=== PATIENT | female | born 1985 | race Two or more races ===

== ENCOUNTER → 2019-08-15 | Outpatient (CLI) | payer OTHER | END | disposition home or self-care (01) | LOC: PRENATAL 10:00 → EDSEX 10:02 → PRENATAL 10:02 | DX: O35.3 Maternal care for (suspected) damage to fetus from viral disease in mother (principal) ==

== ENCOUNTER 2019-12-02 06:53 | Inpatient (IN) | payer OTHER ==
[~2019-12-02] VITALS: Ht 167.6 cm; Wt 3.6 kg
[2019-12-02] MEDS ORDERED: PRENATAL TABLE1 EAC1 PO (14:10)
== END 2019-12-05 17:51 | disposition home or self-care (01) | DRG 788 ==
LOC: OB/GYN 06:53 → LDR 06:53 → O/R 12-03 18:08 → OB/GYN 12-03 18:37
PROVIDERS: ADMIT Obstetrics & Gynecology; ATTEND Obstetrics & Gynecology
PROC: 3E0P7VZ Introduction of Hormone into Female Reproductive, Via Natural or Artificial Opening (ICD-10-PCS; 2019-12-02)
PROC: 3E033VJ Introduction of Other Hormone into Peripheral Vein, Percutaneous Approach (ICD-10-PCS; 2019-12-02)
PROC: 4A1HXCZ Monitoring of Products of Conception, Cardiac Rate, External Approach (ICD-10-PCS; 2019-12-02)
PROC: 10D00Z1 Extraction of Products of Conception, Low, Open Approach (ICD-10-PCS; principal; 2019-12-03 17:00)
DX: O61.0 Failed medical induction of labor (principal); Z3A.40 40 weeks gestation of pregnancy; Z37.0 Single live birth